=== PATIENT | male | born 1960 | race Two or more races ===

== ENCOUNTER 2019-03-11 12:14 | Day surgery (SDC) | payer OTHER ==
[2019-03-11] MEDS ORDERED: PROPOFOL 200 MG INJ (14:30)
[2019-03-11] MEDS ORDERED: MIDAZOLAM 1 MG/ML 2 ML INJ (14:47)
[2019-03-11] MEDS ORDERED: PROPOFOL 40 ML (14:47)
[2019-03-11] MEDS ORDERED: FENTAnyl 50 MCG/ML VIAL (14:47)
[2019-03-11] MEDS ORDERED: LIDOCAINE 2% (SDV) 5 ML INJ (14:47)
== END 2019-03-11 17:44 | disposition home or self-care (01) ==
LOC: GIL 12:14
DX: Z12.11 Encounter for screening for malignant neoplasm of colon (principal); K64.8 Other hemorrhoids; I10 Essential (primary) hypertension; Z87.891 Personal history of nicotine dependence
CPT/HCPCS: 45378